=== PATIENT | male | born 1970 | race Two or more races ===

== ENCOUNTER 2016-08-04 07:21 | Emergency (ER) | payer OTHER ==
[~2016-08-04] VITALS: Ht 182.9 cm; Wt 129.3 kg
[2016-08-04] MEDS ORDERED: IBUPROFEN 400 MG TABLET ONE (07:56)
[2016-08-04] MEDS ORDERED: IBUPROFEN 400 MG TABLET PO ONE (08:00)
[2016-08-04 08:29] LABS: INR 2.76 (0.87-1.13); PROTHROMBIN TIME 30.1 SECS (9.5-12.7)
[2016-08-04 09:00] VITALS: BP 145/78
== END 2016-08-04 09:01 | disposition home or self-care (01) ==
LOC: ER 07:22
DX: S52.122A Displaced fracture of head of left radius, initial encounter for closed fracture (principal); I10 Essential (primary) hypertension; I48.91 Unspecified atrial fibrillation; E11.9 Type 2 diabetes mellitus without complications; W01.0XXA Fall on same level from slipping, tripping and stumbling without subsequent striking against object, initial encounter; Y93.89 Activity, other specified; Y92.89 Other specified places as the place of occurrence of the external cause; Y99.9 Unspecified external cause status
CPT/HCPCS: 29105; 36415; 73070; 73110; 85610; 99284; A4606; Z7610